=== PATIENT | male | born 1980 | race Caucasian/White ===

== ENCOUNTER 2023-08-11 10:10 | Observation (INO) ==
--- NOTE | 2023-08-11 10:45 | DR.ABDMALE ---
HPI Time seen Time Seen by Provider: 08/11/23 10:45 Complaint Chief Complaint:: PATIENT C/O EPIGASTRIC AND RUQ PAIN. PATIENT STATES HE HAS HAD THIS PAIN IN THE RECENT PAST AND WAS ADMITTED TO [facility]. PATIENT WAS DISCHARGED ON FRIDAY OF THIS WEEK. PATIENT STATES HE HAS BEEN FINE BUT WOKE UP WITH SEVERE PAIN IN ABD. PATIENT STATES HE HAS BEEN HAVING NAUSEA AND VOMITTING. PATIENT HAS A NOTED IV TO RIGHT HAND AND HAS BEEN ADMINISTERED NS, ZOFRAN, AND PHENERGAN AT [facility]. COVID-19 Coronavirus risk:travel/contact w/high risk person: No Has patient experienced Coronavirus symptoms: No Mode of arrival Mode of Arrival: Wheelchair Timing Onset of Chief Complaint: 08/11/23 PMH PMH Past Medical History: Yes Past Medical History: Hypertension Past Surgical History: Yes Surgical History: Ortho Surgery Family History History of Family Medical Conditions: No Social History Does any household member use tobacco: No Alcohol Use: None Do you use any recreational Drugs:: No Lives With: Family Lives Where: Home Travel Risk Coronavirus risk:travel/contact w/high risk person: No Has patient experienced Coronavirus symptoms: No Infectious screening In the last 2 months have you had wt loss of >10#?: NO Have you had fever, night sweats or hemotysis?: No Have you traveled outside the country in the last 6 months?: No Isolation: Standard PE Vital Signs Vital Signs: Temp Pulse Resp BP Pulse Ox O2 Del Method 08/11/23 11:36 18 08/11/23 11:08 18 08/11/23 10:18 98.1 F 82 20 168/107 99 Room Air ROR Labs Reviewed 08/11/23 10:57 08/11/23 10:57 Laboratory: WBC 12.2 X10^3/uL (3.6-10.0) H 08/11/23 10:57 RBC 5.53 X10^6/uL (4.7-6.0) 08/11/23 10:57 Hgb 16.6 g/dL (13.5-18.0) 08/11/23 10:57 Hct 49.6 % (42.0-54.0) 08/11/23 10:57 MCV 89.7 fL (80.0-100.0) 08/11/23 10:57 MCH 30.0 pg (27.0-34.0) 08/11/23 10:57 MCHC 33.4 g/dL (33.0-35.0) 08/11/23 10:57 RDW 14.3 % (11.6-16.5) 08/11/23 10:57 Plt Count 250 X10^3/uL (150.0-450.0) 08/11/23 10:57 Plt Count Comment Adequate (ADEQUATE) 08/11/23 10:57 MPV 7.8 fL (7.4-11.0) 08/11/23 10:57 Neut % (Auto) 97.1 % (42.0-75.0) H 08/11/23 10:57 Lymph % (Auto) 1.7 % (21.0-51.0) L 08/11/23 10:57 [place] % (Auto) 1.2 % (0.0-13.0) 08/11/23 10:57 Eos % (Auto) 0.0 % (0.9-2.9) L 08/11/23 10:57 Baso % (Auto) 0 % (0.2-1.0) L 08/11/23 10:57 Neut # (Auto) 11.8 x10^3/uL (2.2-4.8) H 08/11/23 10:57 Lymph # (Auto) 0.2 X10^3/uL (1.3-2.9) L 08/11/23 10:57 [place] # (Auto) 0.2 x10^3/uL (0.3-0.8) L 08/11/23 10:57 Eos # (Auto) 0.0 x10^3/uL (0.0-0.2) 08/11/23 10:57 Baso # (Auto) 0.0 X10^3/uL (0.0-0.1) 08/11/23 10:57 Absolute Nucleated RBC 0.1 /100WBC 08/11/23 10:57 Total Counted 100 08/11/23 10:57 Neutrophils % (Manual) 956 % (39-76) H 08/11/23 10:57 Lymphocytes % (Manual) 4 % (13-43) L 08/11/23 10:57 Monocytes % (Manual) 1 % (4-9) L 08/11/23 10:57 Plt Morphology Comment Normal (NORMAL) 08/11/23 10:57 RBC Morphology Normal (NORMAL) 08/11/23 10:57 Sodium 141 mmol/L (136-145) 08/11/23 10:57 Corrected Sodium 142 mmol/L (136-145) 08/11/23 10:57 Potassium 4.4 mmol/L (3.5-5.1) 08/11/23 10:57 Chloride 104 mmol/L (98-107) 08/11/23 10:57 Carbon Dioxide 26.6 mmol/L (21-32) 08/11/23 10:57 BUN 14 mg/dL (7-18) 08/11/23 10:57 Creatinine 1.01 mg/dL (0.70-1.30) 08/11/23 10:57 Est GFR (MDRD) Af Amer > 60 (>60) 08/11/23 10:57 Est GFR (MDRD) Non-Af > 60 (>60) 08/11/23 10:57 Glucose 121 mg/dL (65-99) H 08/11/23 10:57 Calcium 8.7 mg/dL (8.5-10.1) 08/11/23 10:57 Corrected Calcium TNP 08/11/23 10:57 Total Bilirubin 0.60 mg/dL (0.2-1.0) 08/11/23 10:57 AST 17 Units/L (15-37) 08/11/23 10:57 ALT 54 Units/L (12-78) 08/11/23 10:57 Alkaline Phosphatase 74 Units/L (46-116) 08/11/23 10:57 Total Protein 7.5 g/dL (6.4-8.2) 08/11/23 10:57 Albumin 4.1 g/dL (3.4-5.0) 08/11/23 10:57 Globulin 3.4 g/dL (2.5-4.5) 08/11/23 10:57 Albumin/Globulin Ratio 1.2 Ratio (1.1-2.1) 08/11/23 10:57 Amylase 77 Units/L (25-115) 08/11/23 10:57 Lipase 26 Units/L (16-77) 08/11/23 10:57 Opioid Opioid Risk Tool Age (Stanford box if 16-45): Yes History of Preadolescent Sexual Abuse: No Total: 1 Total Score Risk Category: Low Risk Copyright: Fercho DOOLEY predicting aberrant behaviors Discharge Plan Diagnosis Discharge Problem: Biliary dyskinesia, Abdominal pain Discharge Plan Patient Disposition: 09 ADMITTED INPATIENT Condition: Stable Orders to Discharge Patient Discharge Orders: Transfer (Routine); Ordered 08/11/23 Ordered By: JCAK ROY
[2023-08-11] MEDS ORDERED: ZOFRAN INJ 4 MG VIAL IVP ONE (10:47)
[2023-08-11] MEDS ORDERED: TORADOL 30 MG VIAL IVP ONE (10:49)
[2023-08-11] MEDS ORDERED: PEPCID 20 MG VIAL 20 MG in NS 50 ML IV 50 ML IV ONE (10:54)
[2023-08-11] MEDS ORDERED: TORADOL 30 MG VIAL ONE (11:00)
[2023-08-11] MEDS ORDERED: PEPCID 20 MG VIAL ONE (11:00)
[2023-08-11] MEDS ORDERED: NS 50 ML IV 50 ML IV ONE (11:00)
[2023-08-11] MEDS ORDERED: ZOFRAN INJ 4 MG VIAL ONE (11:00)
[2023-08-11 11:07] LABS: BASOPHILS % (AUTO) 0 % (0.2-1.0); HEMATOCRIT 49.6 % (42.0-54.0); HEMOGLOBIN 16.6 g/dL (13.5-18.0); LYMPHOCYTES # (AUTO) 0.2 X10^3/uL (1.3-2.9); LYMPHOCYTES % (AUTO) 1.7 % (21.0-51.0); MEAN CORPUSCULAR HGB CONC 33.4 g/dL (33.0-35.0); MEAN CORPUSCULAR VOLUME 89.7 fL (80.0-100.0); MEAN PLATELET VOLUME 7.8 fL (7.4-11.0); MONOCYTES # (AUTO) 0.2 x10^3/uL (0.3-0.8); MONOCYTES % (AUTO) 1.2 % (0.0-13.0); NEUTROPHILS # (AUTO) 11.8 x10^3/uL (2.2-4.8); NEUTROPHILS % (AUTO) 97.1 % (42.0-75.0); PLATELET COUNT 250 X10^3/uL (150.0-450.0); RED BLOOD COUNT 5.53 X10^6/uL (4.7-6.0); RED CELL DISTRIBUTION WIDTH 14.3 % (11.6-16.5); WHITE BLOOD COUNT 12.2 X10^3/uL (3.6-10.0)
[2023-08-11 11:26] LABS: ALANINE AMINOTRANSFERASE 54 Units/L (12-78); ALBUMIN 4.1 g/dL (3.4-5.0); ALKALINE PHOSPHATASE 74 Units/L (46-116); AMYLASE 77 Units/L (25-115); ASPARTATE AMINO TRANSFERASE 17 Units/L (15-37); BLOOD UREA NITROGEN 14 mg/dL (7-18); CALCIUM 8.7 mg/dL (8.5-10.1); CARBON DIOXIDE 26.6 mmol/L (21-32); CHLORIDE 104 mmol/L (98-107); COR NA(FOR HYPERGLY) 142 mmol/L (136-145); CREATININE 1.01 mg/dL (0.70-1.30); GLUCOSE 121 mg/dL (65-99); LIPASE 26 Units/L (16-77); POTASSIUM 4.4 mmol/L (3.5-5.1); SODIUM 141 mmol/L (136-145); TOTAL PROTEIN 7.5 g/dL (6.4-8.2); eGFR NON BLACK RACES > 60 (>60)
[2023-08-11] MEDS ORDERED: MORPHINE SULFATE INJ 4 MG IVP ONE (11:27)
[2023-08-11] MEDS ORDERED: MORPHINE SULFATE INJ 4 MG ONE (11:32)
[2023-08-11 12:18] LABS: PLATELET MORPHOLOGY COMMENT NORMAL (NORMAL)
[2023-08-11 14:37] VITALS: BMI 25.9
[2023-08-11] MEDS ORDERED: CATAPRES TAB 0.1 MG PO ONE (14:44)
[2023-08-11] MEDS ORDERED: PEPCID TAB 20 MG PO PRN (15:25)
[2023-08-11] MEDS ORDERED: DILAUDID INJ IVP PRN (15:25)
[2023-08-11] MEDS: LR 1,000 ML IV 1,000 ML IV SCH (15:46)
[2023-08-11 15:58] LABS: BILIRUBIN,URINE NEGATIVE (NEGATIVE); BLOOD/HEMOGLOBIN,URINE NEGATIVE (NEGATIVE); GLUCOSE, URINE NEGATIVE (NEGATIVE); KETONES,URINE 4+ (NEGATIVE); LEUKOCYTE ESTERASE ,URINE NEGATIVE (NEGATIVE); NITRITES,URINE NEGATIVE (NEGATIVE); PROTEIN,URINE 2+ (NEGATIVE); UROBILINOGEN,URINE 2+ (NORMAL)
[2023-08-11 16:07] LABS: APPEARANCE,URINE SLIGHTLY HAZY (CLEAR); BACTERIA,URINE NEGATIVE /HPF (NEGATIVE); COLOR,URINE YELLOW (YELLOW); RBC,URINE NONE SEEN /HPF (0-3); SQUAMOUS EPITHELIAL CELL,UR RARE /HPF (NEGATIVE)
[2023-08-11] MEDS: DILAUDID INJ IVP PRN ×2 (16:07→23:08)
[2023-08-11] MEDS: LIPITOR TAB 20 MG PO SCH (20:27)
--- NOTE | 2023-08-11 20:27 | DR.H&P ---
H&P History & Physical for Day of: H&P Date: 08/11/23 Chief Complaint Chief Complaint: RUQ pain Allergies Allergies Allergy/AdvReac Type Severity Reaction Status Date / Time No Known Allergies Allergy Verified 08/11/23 10:20 History of Present Illness History of Present Illness: 43 yo male, prisoner in [facility] with recent multiple episodes of RUQ Pain. Seen at [facility] and had CT and gallbladder ultrasound with no findings of gallstones or gallbladder wall thickening. Past Medical History Past Medical History: Dyslipidemia and Hypertension Past Surgical History Surgical History: Ortho Surgery Family History Family Medical History: Diabetes Mellitus and Hypertension Social History Does patient currently use any type of tobacco product: No Have you used tobacco products in the last 12 months: No Does any household member use tobacco: No Alcohol Use: None Drug Use: None Medications Home Medications: Home Medications Medication Instructions Recorded Confirmed Type atorvastatin 20 mg tablet 20 mg PO HS 08/11/23 08/11/23 History ibuprofen 400 mg tablet 400 mg PO Q8H PRN 08/11/23 08/11/23 History lisinopril 5 mg tablet 5 mg PO DAILY 08/11/23 08/11/23 History pantoprazole 40 mg tablet,delayed 40 mg PO DAILY 08/11/23 08/11/23 History release (Protonix) Labs 08/11/23 10:57 08/11/23 10:57 Labs: Laboratory WBC 12.2 X10^3/uL (3.6-10.0) H 08/11/23 10:57 RBC 5.53 X10^6/uL (4.7-6.0) 08/11/23 10:57 Hgb 16.6 g/dL (13.5-18.0) 08/11/23 10:57 Hct 49.6 % (42.0-54.0) 08/11/23 10:57 MCV 89.7 fL (80.0-100.0) 08/11/23 10:57 MCH 30.0 pg (27.0-34.0) 08/11/23 10:57 MCHC 33.4 g/dL (33.0-35.0) 08/11/23 10:57 RDW 14.3 % (11.6-16.5) 08/11/23 10:57 Plt Count 250 X10^3/uL (150.0-450.0) 08/11/23 10:57 Plt Count Comment Adequate (ADEQUATE) 08/11/23 10:57 MPV 7.8 fL (7.4-11.0) 08/11/23 10:57 Neut % (Auto) 97.1 % (42.0-75.0) H 08/11/23 10:57 Lymph % (Auto) 1.7 % (21.0-51.0) L 08/11/23 10:57 [place] % (Auto) 1.2 % (0.0-13.0) 08/11/23 10:57 Eos % (Auto) 0.0 % (0.9-2.9) L 08/11/23 10:57 Baso % (Auto) 0 % (0.2-1.0) L 08/11/23 10:57 Neut # (Auto) 11.8 x10^3/uL (2.2-4.8) H 08/11/23 10:57 Lymph # (Auto) 0.2 X10^3/uL (1.3-2.9) L 08/11/23 10:57 [place] # (Auto) 0.2 x10^3/uL (0.3-0.8) L 08/11/23 10:57 Eos # (Auto) 0.0 x10^3/uL (0.0-0.2) 08/11/23 10:57 Baso # (Auto) 0.0 X10^3/uL (0.0-0.1) 08/11/23 10:57 Absolute Nucleated RBC 0.1 /100WBC 08/11/23 10:57 Total Counted 100 08/11/23 10:57 Neutrophils % (Manual) 956 % (39-76) H 08/11/23 10:57 Lymphocytes % (Manual) 4 % (13-43) L 08/11/23 10:57 Monocytes % (Manual) 1 % (4-9) L 08/11/23 10:57 Plt Morphology Comment Normal (NORMAL) 08/11/23 10:57 RBC Morphology Normal (NORMAL) 08/11/23 10:57 Sodium 141 mmol/L (136-145) 08/11/23 10:57 Corrected Sodium 142 mmol/L (136-145) 08/11/23 10:57 Potassium 4.4 mmol/L (3.5-5.1) 08/11/23 10:57 Chloride 104 mmol/L (98-107) 08/11/23 10:57 Carbon Dioxide 26.6 mmol/L (21-32) 08/11/23 10:57 BUN 14 mg/dL (7-18) 08/11/23 10:57 Creatinine 1.01 mg/dL (0.70-1.30) 08/11/23 10:57 Est GFR (MDRD) Af Amer > 60 (>60) 08/11/23 10:57 Est GFR (MDRD) Non-Af > 60 (>60) 08/11/23 10:57 Glucose 121 mg/dL (65-99) H 08/11/23 10:57 Calcium 8.7 mg/dL (8.5-10.1) 08/11/23 10:57 Corrected Calcium TNP 08/11/23 10:57 Total Bilirubin 0.60 mg/dL (0.2-1.0) 08/11/23 10:57 AST 17 Units/L (15-37) 08/11/23 10:57 ALT 54 Units/L (12-78) 08/11/23 10:57 Alkaline Phosphatase 74 Units/L (46-116) 08/11/23 10:57 Total Protein 7.5 g/dL (6.4-8.2) 08/11/23 10:57 Albumin 4.1 g/dL (3.4-5.0) 08/11/23 10:57 Globulin 3.4 g/dL (2.5-4.5) 08/11/23 10:57 Albumin/Globulin Ratio 1.2 Ratio (1.1-2.1) 08/11/23 10:57 Amylase 77 Units/L (25-115) 08/11/23 10:57 Lipase 26 Units/L (16-77) 08/11/23 10:57 Specimen Type Random urine 08/11/23 15:40 Urine Color Yellow (YELLOW) 08/11/23 15:40 Urine Appearance Slightly hazy (CLEAR) 08/11/23 15:40 Urine pH 6.0 (5.0 - 8.0) 08/11/23 15:40 Ur Specific [place] 1.025 (1.000-1.030) 08/11/23 15:40 Urine Protein 2+ (NEGATIVE) 08/11/23 15:40 Urine Glucose (UA) Negative (NEGATIVE) 08/11/23 15:40 Urine Ketones 4+ (NEGATIVE) 08/11/23 15:40 Urine Blood Negative (NEGATIVE) 08/11/23 15:40 Urine Nitrite Negative (NEGATIVE) 08/11/23 15:40 Urine Bilirubin Negative (NEGATIVE) 08/11/23 15:40 Urine Urobilinogen 2+ (NORMAL) 08/11/23 15:40 Ur Leukocyte Esterase Negative (NEGATIVE) 08/11/23 15:40 Urine RBC None seen /HPF (0-3) 08/11/23 15:40 Urine WBC 0-2 /HPF (0-5) 08/11/23 15:40 Ur Squamous Epith Cells Rare /HPF (NEGATIVE) 08/11/23 15:40 Urine Bacteria Negative /HPF (NEGATIVE) 08/11/23 15:40 Ur Culture Indicated? No/not indicated 08/11/23 15:40 Review of Systems Constitutional: See HPI Eyes: No Symptoms Reported ENT: No Symptoms Reported Respiratory: No Symptoms Reported Cardiovascular: No Symptoms Reported Gastrointestinal: See HPI Genitourinary: No Symptoms Reported Musculoskeletal: No Symptoms Reported Skin: No Symptoms Reported Neurological: No Symptoms Reported Physical Exam Vital Signs: Vital Signs Temperature 98.2 F Temperature 98.6 F Pulse Rate [Left Brachial] 101 Pulse Rate [Left Brachial] 74 Respiratory Rate 20 Respiratory Rate 20 Respiratory Rate 20 Respiratory Rate 20 Respiratory Rate 20 Blood Pressure [Left Arm] 129/64 Blood Pressure [Left Arm] 165/80 Blood Pressure [Left Arm] 181/100 O2 Sat by Pulse Oximetry 97 O2 Sat by Pulse Oximetry 99 Oriented: Normal, Time, Person and Place Eyes: Normal Ear: Normal Nose: Normal Throat: Normal Respiratory: Clear Throughout Cardiovascular: Normal : Normal Auscultation: Bowel Sounds: Normal Palpation: Normal Tenderness: RUQ Skin: Normal Musculoskeletal: Normal Psychiatric: Normal Mood Description: Anxious Affect: Normal Speech Pattern: Clear Assessment/Plan (1) RUQ abdominal pain: Status: Acute Plan: Hydrate , pain control and HIDA scan in AM (2) Essential (primary) hypertension: Status: Acute Plan: usual home meds (3) Dyslipidemia: Status: Acute Plan: usual home meds
[2023-08-12] MEDS: LR 1,000 ML IV 1,000 ML IV SCH ×2 (05:13→19:08)
[2023-08-12 05:35] LABS: BASOPHILS # (AUTO) 0.1 X10^3/uL (0.0-0.1); BASOPHILS % (AUTO) 0.9 % (0.2-1.0); EOSINOPHILS % (AUTO) 0.2 % (0.9-2.9); HEMATOCRIT 44.5 % (42.0-54.0); HEMOGLOBIN 14.9 g/dL (13.5-18.0); LYMPHOCYTES # (AUTO) 1.2 X10^3/uL (1.3-2.9); LYMPHOCYTES % (AUTO) 11.8 % (21.0-51.0); MEAN CORPUSCULAR HEMOGLOBIN 30.1 pg (27.0-34.0); MEAN CORPUSCULAR HGB CONC 33.4 g/dL (33.0-35.0); MEAN CORPUSCULAR VOLUME 90.2 fL (80.0-100.0); MEAN PLATELET VOLUME 8.5 fL (7.4-11.0); MONOCYTES # (AUTO) 1.1 x10^3/uL (0.3-0.8); MONOCYTES % (AUTO) 10.8 % (0.0-13.0); NEUTROPHILS # (AUTO) 7.7 x10^3/uL (2.2-4.8); NEUTROPHILS % (AUTO) 76.3 % (42.0-75.0); PLATELET COUNT 226 X10^3/uL (150.0-450.0); RED BLOOD COUNT 4.93 X10^6/uL (4.7-6.0); RED CELL DISTRIBUTION WIDTH 14.3 % (11.6-16.5); WHITE BLOOD COUNT 10.1 X10^3/uL (3.6-10.0)
[2023-08-12 05:41] LABS: ALANINE AMINOTRANSFERASE 37 Units/L (12-78); ALBUMIN 3.1 g/dL (3.4-5.0); ALKALINE PHOSPHATASE 57 Units/L (46-116); ASPARTATE AMINO TRANSFERASE 11 Units/L (15-37); BLOOD UREA NITROGEN 14 mg/dL (7-18); CARBON DIOXIDE 26.1 mmol/L (21-32); CHLORIDE 106 mmol/L (98-107); COR CA(FOR HYPOALB) 8.7 mg/dL (8.5-10.1); CREATININE 0.87 mg/dL (0.70-1.30); GLUCOSE 82 mg/dL (65-99); MAGNESIUM 1.9 mg/dL (2.0-2.9); POTASSIUM 3.9 mmol/L (3.5-5.1); SODIUM 141 mmol/L (136-145); TOTAL PROTEIN 5.9 g/dL (6.4-8.2); eGFR NON BLACK RACES > 60 (>60)
[2023-08-12] MEDS ORDERED: CONSULT PHARMACY - POTASSIUM & MAGNESIUM XX SCH (08:00)
[2023-08-12] MEDS: MAG-OX TAB PO SCH ×2 (09:41→10:48)
[2023-08-12] MEDS: PROTONIX TAB 40 MG PO SCH (09:41)
[2023-08-12] MEDS: ZESTRIL TAB 5 MG PO SCH (09:42)
--- NOTE | 2023-08-12 10:30 | NM ---
EXAM:HIDA/HEPATOBILIARY SCAN W/EFHISTORY:Pt c/o right upper quadrant abdominal pain x 2 weeks with pain level fluctuating between 5-10 on a pain scale Also has had nausea and vomiting; 6.2mCi 99mTc Mebrofenin injected IV right handGBEF calculated utilizing 8 oz Ensure.COMPARISON:NoneTECHNIQUE:6.2 mCi Tc-99m mebrofenin were injected intravenously. Planar images were obtained for 90 minutes.FINDINGS:There was prompt uptake and excretion by the liver. Activity is seen in the gallbladder by 8 minutes with no evidence of cystic duct obstruction. Activity is seen in the small bowel at 32 minutes with no evidence of common bile duct obstruction.At 60 minutes, the technologist gave the patient a fatty meal. Gallbladder ejection fraction was calculated at 33%. Normal gallbladder ejection fraction is greater than 35%. Low gallbladder ejection fraction can be seen gallbladder dysfunction or biliary dyskinesia.IMPRESSION:1. Findings suggesting gallbladder dysfunctionTHIS IS AN ELECTRONICALLY VERIFIED FINAL [id number]/12/2023 10:26 AM - Electronically signed by Soy Young MD
[2023-08-12] MEDS: ROBITUSSIN DM PO PRN (10:48)
[2023-08-12] MEDS: DILAUDID INJ IVP PRN ×3 (12:46→22:09)
[2023-08-12] MEDS: LIPITOR TAB 20 MG PO SCH (22:08)
--- NOTE | 2023-08-12 22:14 | NOTE.SOAP ---
Soap Note Note for Day of Date of Exam: 08/12/23 Subjective Data Subjective Data: Patient has done well. Had hepatobiliary scan today. Objective Data Temperature: 98.2 F Pulse Rate: 60 Respiratory Rate: 20 Blood Pressure: 120/59 O2 Sat by Pulse Oximetry: 97 Objective Data: Mild RUQ tenderness.HIDA with EF=33% consistent with biliary dyskinesia. Assessment Assessment: biliary dyskinesia Plan Plan: plan laparoscopic cholecystectomy tomorrow. Risk and benefits discussed with the patient and he agrees to proceed.
[2023-08-13] MEDS: DILAUDID INJ IVP PRN ×9 (02:15→22:39)
[2023-08-13 05:43] LABS: BASOPHILS # (AUTO) 0.1 X10^3/uL (0.0-0.1); BASOPHILS % (AUTO) 1.1 % (0.2-1.0); EOSINOPHILS % (AUTO) 0.6 % (0.9-2.9); HEMATOCRIT 46.6 % (42.0-54.0); HEMOGLOBIN 15.6 g/dL (13.5-18.0); LYMPHOCYTES # (AUTO) 1.1 X10^3/uL (1.3-2.9); LYMPHOCYTES % (AUTO) 18.5 % (21.0-51.0); MEAN CORPUSCULAR HEMOGLOBIN 30.1 pg (27.0-34.0); MEAN CORPUSCULAR HGB CONC 33.4 g/dL (33.0-35.0); MEAN CORPUSCULAR VOLUME 90.1 fL (80.0-100.0); MEAN PLATELET VOLUME 8.2 fL (7.4-11.0); MONOCYTES # (AUTO) 0.8 x10^3/uL (0.3-0.8); NEUTROPHILS # (AUTO) 4.1 x10^3/uL (2.2-4.8); NEUTROPHILS % (AUTO) 66.8 % (42.0-75.0); PLATELET COUNT 236 X10^3/uL (150.0-450.0); RED BLOOD COUNT 5.17 X10^6/uL (4.7-6.0); RED CELL DISTRIBUTION WIDTH 14.1 % (11.6-16.5); WHITE BLOOD COUNT 6.2 X10^3/uL (3.6-10.0)
[2023-08-13 05:55] LABS: ALANINE AMINOTRANSFERASE 35 Units/L (12-78); ALBUMIN 3.3 g/dL (3.4-5.0); ALKALINE PHOSPHATASE 63 Units/L (46-116); ASPARTATE AMINO TRANSFERASE 13 Units/L (15-37); BLOOD UREA NITROGEN 10 mg/dL (7-18); CALCIUM 8.3 mg/dL (8.5-10.1); CARBON DIOXIDE 31.5 mmol/L (21-32); CHLORIDE 105 mmol/L (98-107); COR CA(FOR HYPOALB) 8.9 mg/dL (8.5-10.1); CREATININE 0.97 mg/dL (0.70-1.30); GLUCOSE 83 mg/dL (65-99); POTASSIUM 4.1 mmol/L (3.5-5.1); SODIUM 141 mmol/L (136-145); TOTAL PROTEIN 6.3 g/dL (6.4-8.2); eGFR NON BLACK RACES > 60 (>60)
--- NOTE | 2023-08-13 07:11 | RAD ---
EXAM:PA chestHISTORY:Cough short of breathCOMPARISON:NoneFINDINGS:Normal-wong earing heart, lungs, mediastinum and pleural spaces. There is no definite pneumonia or CHF.IMPRESSION:No acute findings.THIS IS AN ELECTRONICALLY VERIFIED FINAL [id number]/13/2023 7:07 AM - Electronically signed by Jim Alvares MD
[2023-08-13] MEDS: LR 1,000 ML IV 1,000 ML IV SCH ×3 (07:14→20:27)
[2023-08-13] MEDS: ZESTRIL TAB 5 MG PO SCH (10:21)
[2023-08-13] MEDS: PROTONIX TAB 40 MG PO SCH (10:21)
[2023-08-13] MEDS ORDERED: BACTROBAN TOPICAL OINT ONE (13:09)
[2023-08-13] MEDS ORDERED: LR 1,000 ML IV 1,000 ML IV ONE (13:24)
[2023-08-13] MEDS ORDERED: ANCEF VIAL 1 GRAM ONE (13:24)
[2023-08-13] MEDS ORDERED: NS 100 ML IV 100 ML ONE (13:24)
[2023-08-13] MEDS ORDERED: VERSED ONE (13:31)
[2023-08-13] MEDS ORDERED: DIPRIVAN VIAL 20 ML ONE (13:31)
[2023-08-13] MEDS ORDERED: ZEMURON 100 MG VIAL ONE (13:33)
[2023-08-13] MEDS ORDERED: DILAUDID INJ ONE ×3 (13:33→14:59)
[2023-08-13] MEDS ORDERED: MARCAINE 0.5% ONE (13:40)
[2023-08-13] MEDS ORDERED: ZOFRAN INJ 4 MG VIAL IVP PRN (13:48)
[2023-08-13] MEDS ORDERED: REGLAN INJ 10 MG VIAL IVP PRN (13:48)
[2023-08-13] MEDS ORDERED: BARHEMSYS INJ IVP PRN (13:48)
[2023-08-13] MEDS ORDERED: BENADRYL INJ 50 MG VIAL IVP PRN (13:48)
[2023-08-13] MEDS ORDERED: ULTANE GAS IN ONE (13:51)
[2023-08-13] MEDS ORDERED: PEPCID 20 MG VIAL ONE (14:09)
[2023-08-13] MEDS ORDERED: ZOFRAN INJ 4 MG VIAL ONE ×2 (14:09→15:20)
[2023-08-13] MEDS ORDERED: MAGNESIUM SULFATE 50% INJ VIAL ONE (14:09)
[2023-08-13] MEDS ORDERED: DECADRON INJ ONE (14:09)
[2023-08-13] MEDS ORDERED: BRIDION ONE (14:31)
--- NOTE | 2023-08-13 14:55 | OR.IMMED ---
IMMEDIATE POST-OP NOTE Immediate Post-Op Note Date of surgery/procedure: 08/13/23 Pre-Op Diagnosis: biliary dyskinesia Post-Op Diagnosis: same Procedure: laparoscopic cholecystectomy Description of Procedure: see dictation Surgeon/Priming Powder Premix Blender: oMshe Findings: as above Estimated Blood Loss: < 50 cc Drains: NONE Complications: none Progress Notes: return to floor, begin diet.
[2023-08-13] MEDS ORDERED: APRESOLINE INJ 20 MG VIAL IVP ONE ×2 (15:09→15:22)
[2023-08-13] MEDS: LIPITOR TAB 20 MG PO SCH (20:28)
[2023-08-14] MEDS: ZOFRAN INJ 4 MG VIAL IVP PRN ×2 (01:36→14:33)
[2023-08-14] MEDS: DILAUDID INJ IVP PRN ×6 (02:40→22:34)
[2023-08-14] MEDS: LR 1,000 ML IV 1,000 ML IV SCH ×4 (06:40→22:48)
[2023-08-14] MEDS: PROTONIX TAB 40 MG PO SCH (09:51)
[2023-08-14] MEDS: ROBITUSSIN DM PO PRN ×3 (09:51→22:35)
[2023-08-14] MEDS: ZESTRIL TAB 5 MG PO SCH (09:52)
--- NOTE | 2023-08-14 15:34 | NOTE.SOAP ---
Soap Note Note for Day of Date of Exam: 08/14/23 Subjective Data Subjective Data: Postoperative day one after laparoscopic cholecystectomy for biliary dyskinesia. Complaining of abdominal pain. Incisions look good. Complaining of poor appetite . Objective Data Temperature: 99.2 F Pulse Rate: 82 Respiratory Rate: 20 Blood Pressure: 137/77 O2 Sat by Pulse Oximetry: 96 Objective Data: Abdomen soft and benign. Assessment Assessment: POD # 1 s/p lap tim Plan Plan: check LEFs in AM. Hopefully d/c in AM
[2023-08-14] MEDS: LIPITOR TAB 20 MG PO SCH (20:20)
[2023-08-15] MEDS: DILAUDID INJ IVP PRN ×3 (02:55→13:07)
[2023-08-15] MEDS: ROBITUSSIN DM PO PRN ×2 (03:20→13:06)
[2023-08-15 06:38] LABS: ALANINE AMINOTRANSFERASE 64 Units/L (12-78); ALBUMIN 2.9 g/dL (3.4-5.0); ALKALINE PHOSPHATASE 66 Units/L (46-116); ASPARTATE AMINO TRANSFERASE 24 Units/L (15-37); BLOOD UREA NITROGEN 10 mg/dL (7-18); CALCIUM 8.6 mg/dL (8.5-10.1); CARBON DIOXIDE 29.8 mmol/L (21-32); CHLORIDE 104 mmol/L (98-107); COR CA(FOR HYPOALB) 9.5 mg/dL (8.5-10.1); CREATININE 0.86 mg/dL (0.70-1.30); GLUCOSE 91 mg/dL (65-99); POTASSIUM 4.1 mmol/L (3.5-5.1); SODIUM 139 mmol/L (136-145); TOTAL PROTEIN 6.1 g/dL (6.4-8.2); eGFR NON BLACK RACES > 60 (>60)
[2023-08-15] MEDS: ZESTRIL TAB 5 MG PO SCH (09:32)
[2023-08-15] MEDS: PROTONIX TAB 40 MG PO SCH (09:33)
--- NOTE | 2023-08-15 11:28 | DR.OPNOTE ---
OP NOTE Pre-Op Diagnosis: Biliary dyskinesia Post-Op Diagnosis: same Procedure Date Date Of Procedure: 08/13/23 Procedure: PROCEDURE: LAPAROSCOPIC CHOLECYSTECTOMY NARRARTIVE : The patient was taken to the operative suite and placed in the supine position. General endotracheal anesthesia was induced. The entire abdomen prepped and draped in sterile fashion. Patient was placed in reverse Trendelenburg position and rolled to the left. Time out for the procedure obtained. Curvilinear 3cm incision made below the umbilicus in the midline and dissection carried down to the midline fascia. Medline fascia had holding sutures of 0 vicryl placed on either side of the midline. The fascia opened vertically with a 15 knife blade. The peritoneum was opened with Metzenbaum scissors and the abdominal cavity entered. Mojgan cannula placed through this opening and held in position with the holding sutures. The abdomen insufflated to 15 mm of mercury with carbon dioxide. Under direct vision two 5 mm trocars placed along the right costal margin. A 5 mm trocar placed in the epigastrium. The gallbladder was identified and was consistent with biliary dyskinesia . The gallbladder was grasped at the fundus and infundibulum and dissection carried out in Calot's triangle identifying the cystic duct and cystic artery , i.e. the critical view of safety. Both were clipped proximally and distally and divided. The peritoneum of the gallbladder incised with electrocautery to remove the gallbladder from the liver bed. The gallbladder removed through the infra umbilical port. The Mojgan cannula was replaced. Abdomen irrigated and suctioned free. Hemostasis obtained with electrocautery where necessary. Surgicel placed in the liver bed where the gallbladder has been removed. All trocars removed. The fascia of the initial incision closed with interrupted 0 Vicryl suture . All laparoscopic incisions then closed with 3-0 Vicryl sutures in the subcutaneous tissue in interrupted fashion. The skin closed with steri strips Each incision was injected with 0.5% Marcaine. The patient was extubated and taken to PACU in good condition . Type of Anesthesia: General Anesthetic w/ETT Findings: as above Type of Fluids Used:: Lactated Ringers EBL: minimal Complications:: none Needle/Sponge Count:: correct Disposition/Condition: Pt. tolerated procedure without difficulty. Extubated in the OR and taken to PACU in stable condition.
[2023-08-15 12:12] VITALS: BP 125/74; PULSE 72; TEMP 98.6; O2SAT 96
--- NOTE | 2023-08-15 12:58 | W.DIS.FURT ---
Summary of Discharge Discharge Summary of Date Date of Exam: 08/15/23 Admission Date Date of Admission: 08/11/23 Admission Diagnosis Patient Problems (Updated 08/11/23 @ 20:25 by Dexter Mesa) Biliary dyskinesia (Acute) K82.8 Abdominal pain (Acute) R10.9 Hospital Course: This 43 year old male presented with multiple episodes of right upper quadrant pain with meals. CT scan showed no obvious gallstones. Patient was admitted and underwent a biliary HIDA scan showing a low ejection fraction of 33%. The patient was taken to the operating Suite on August 13 where he underwent uncomplicated laparoscopic cholecystectomy. He had complained of some abdominal pain in the right upper quadrant that has resolved. Post-procedure liver function tests are within normal limits. He will be discharged back to the long-term system. I will see him in follow up in two weeks. Vital Signs: Vital Signs (72 hours) 08/12/23 22:14 08/14/23 15:31 08/12/23 13:16 Temperature 98.2 F 99.2 F Pulse Rate 60 82 Pulse Rate [Left Brachial] Respiratory Rate 20 20 18 Blood Pressure 120/59 137/77 Blood Pressure [Left Arm] O2 Sat by Pulse Oximetry 97 96 Oxygen Delivery Method 08/12/23 16:00 08/12/23 16:58 08/12/23 17:28 Temperature 98.1 F Pulse Rate Pulse Rate [Left Brachial] 56 L Respiratory Rate 18 18 18 Blood Pressure Blood Pressure [Left Arm] 130/73 O2 Sat by Pulse Oximetry 98 Oxygen Delivery Method Room Air 08/12/23 22:09 08/12/23 22:39 08/12/23 19:00 Temperature Pulse Rate Pulse Rate [Left Brachial] Respiratory Rate 18 18 Blood Pressure Blood Pressure [Left Arm] O2 Sat by Pulse Oximetry Oxygen Delivery Method Room Air 08/12/23 20:00 08/13/23 00:00 08/13/23 02:15 Temperature 97.7 F 98.2 F Pulse Rate Pulse Rate [Left Brachial] 60 65 Respiratory Rate 20 20 20 Blood Pressure Blood Pressure [Left Arm] 139/70 129/63 O2 Sat by Pulse Oximetry 98 98 Oxygen Delivery Method Room Air Room Air 08/13/23 02:45 08/13/23 03:54 08/13/23 06:09 Temperature 97.7 F Pulse Rate Pulse Rate [Left Brachial] 82 Respiratory Rate 20 20 20 Blood Pressure Blood Pressure [Left Arm] 140/80 O2 Sat by Pulse Oximetry 99 Oxygen Delivery Method Room Air 08/13/23 06:39 08/13/23 10:29 08/13/23 10:59 Temperature Pulse Rate Pulse Rate [Left Brachial] Respiratory Rate 20 20 20 Blood Pressure Blood Pressure [Left Arm] O2 Sat by Pulse Oximetry Oxygen Delivery Method 08/13/23 13:33 08/13/23 13:51 08/13/23 14:46 Temperature 98.1 F 97 F L Pulse Rate 66 81 Pulse Rate [Left Brachial] Respiratory Rate 18 18 17 Blood Pressure 137/81 176/100 Blood Pressure [Left Arm] O2 Sat by Pulse Oximetry 97 99 Oxygen Delivery Method Room Air Aerosol Face Tent 08/13/23 14:51 08/13/23 14:51 08/13/23 15:11 Temperature Pulse Rate 74 66 Pulse Rate [Left Brachial] Respiratory Rate 18 18 18 Blood Pressure 191/100 213/103 Blood Pressure [Left Arm] O2 Sat by Pulse Oximetry 99 98 Oxygen Delivery Method Aerosol Face Tent Room Air 08/13/23 15:16 08/13/23 14:56 08/13/23 15:01 Temperature Pulse Rate 68 75 63 Pulse Rate [Left Brachial] Respiratory Rate 17 18 19 Blood Pressure 213/103 215/112 206/108 Blood Pressure [Left Arm] O2 Sat by Pulse Oximetry 99 97 98 Oxygen Delivery Method Room Air Room Air Room Air 08/13/23 15:06 08/13/23 08:30 08/13/23 08:00 Temperature 98.4 F Pulse Rate 66 Pulse Rate [Left Brachial] 74 Respiratory Rate 18 20 Blood Pressure 205/110 Blood Pressure [Left Arm] 121/74 O2 Sat by Pulse Oximetry 98 92 L Oxygen Delivery Method Room Air Room Air Room Air 08/13/23 14:56 08/13/23 15:01 08/13/23 15:11 Temperature Pulse Rate Pulse Rate [Left Brachial] Respiratory Rate 19 19 18 Blood Pressure Blood Pressure [Left Arm] O2 Sat by Pulse Oximetry Oxygen Delivery Method 08/13/23 15:21 08/13/23 15:26 08/13/23 12:00 Temperature 98.4 F Pulse Rate 71 72 Pulse Rate [Left Brachial] 58 L Respiratory Rate 17 18 20 Blood Pressure 196/104 192/101 Blood Pressure [Left Arm] 122/66 O2 Sat by Pulse Oximetry 98 98 96 Oxygen Delivery Method Room Air Room Air Room Air 08/13/23 15:34 08/13/23 15:40 08/13/23 15:55 Temperature 98.1 F 98.3 F Pulse Rate 76 Pulse Rate [Left Brachial] 71 98 H Respiratory Rate 18 20 20 Blood Pressure 188/96 Blood Pressure [Left Arm] 194/104 151/107 O2 Sat by Pulse Oximetry 97 99 98 Oxygen Delivery Method Room Air 08/13/23 16:10 08/13/23 16:25 08/13/23 16:40 Temperature 97.9 F 98.4 F 97.7 F Pulse Rate Pulse Rate [Left Brachial] 88 83 88 Respiratory Rate 20 18 18 Blood Pressure Blood Pressure [Left Arm] 165/107 171/96 174/98 O2 Sat by Pulse Oximetry 96 94 L 96 Oxygen Delivery Method 08/13/23 17:40 08/13/23 18:38 08/13/23 19:08 Temperature 98.1 F Pulse Rate Pulse Rate [Left Brachial] 88 Respiratory Rate 18 18 18 Blood Pressure Blood Pressure [Left Arm] 169/88 O2 Sat by Pulse Oximetry 98 Oxygen Delivery Method 08/13/23 18:40 08/13/23 19:40 08/13/23 20:00 Temperature 98.4 F 98.7 F 97.9 F Pulse Rate Pulse Rate [Left Brachial] 105 H 100 H 100 H Respiratory Rate 20 20 20 Blood Pressure Blood Pressure [Left Arm] 129/81 123/79 133/79 O2 Sat by Pulse Oximetry 96 95 95 Oxygen Delivery Method Room Air Room Air Room Air 08/13/23 19:00 08/13/23 22:39 08/13/23 23:09 Temperature Pulse Rate Pulse Rate [Left Brachial] Respiratory Rate 17 16 Blood Pressure Blood Pressure [Left Arm] O2 Sat by Pulse Oximetry Oxygen Delivery Method Room Air 08/14/23 00:00 08/14/23 04:00 08/14/23 02:40 Temperature 98.1 F 98.3 F Pulse Rate Pulse Rate [Left Brachial] 97 H 81 Respiratory Rate 20 20 21 Blood Pressure Blood Pressure [Left Arm] 145/76 168/80 O2 Sat by Pulse Oximetry 97 99 Oxygen Delivery Method Room Air Room Air 08/14/23 03:10 08/14/23 06:40 08/14/23 08:00 Temperature 98.0 F Pulse Rate Pulse Rate [Left Brachial] 85 Respiratory Rate 17 22 20 Blood Pressure Blood Pressure [Left Arm] 129/74 O2 Sat by Pulse Oximetry 98 Oxygen Delivery Method Room Air 08/14/23 07:00 08/14/23 07:10 08/14/23 10:31 Temperature Pulse Rate Pulse Rate [Left Brachial] Respiratory Rate 22 22 Blood Pressure Blood Pressure [Left Arm] O2 Sat by Pulse Oximetry Oxygen Delivery Method Room Air 08/14/23 12:00 08/14/23 11:01 08/14/23 14:32 Temperature 99.2 F Pulse Rate Pulse Rate [Left Brachial] 82 Respiratory Rate 20 20 20 Blood Pressure Blood Pressure [Left Arm] 137/77 O2 Sat by Pulse Oximetry 96 Oxygen Delivery Method Room Air 08/14/23 16:00 08/14/23 15:02 08/14/23 18:24 Temperature 98.6 F Pulse Rate Pulse Rate [Left Brachial] 69 Respiratory Rate 20 20 20 Blood Pressure Blood Pressure [Left Arm] 132/80 O2 Sat by Pulse Oximetry 98 Oxygen Delivery Method Room Air 08/14/23 20:00 08/14/23 19:00 08/14/23 22:34 Temperature 98.5 F Pulse Rate Pulse Rate [Left Brachial] 76 Respiratory Rate 20 18 Blood Pressure Blood Pressure [Left Arm] 127/73 O2 Sat by Pulse Oximetry 95 Oxygen Delivery Method Room Air Room Air 08/14/23 23:04 08/15/23 00:00 08/15/23 02:55 Temperature 98.6 F Pulse Rate Pulse Rate [Left Brachial] 69 Respiratory Rate 21 20 22 Blood Pressure Blood Pressure [Left Arm] 131/77 O2 Sat by Pulse Oximetry 96 Oxygen Delivery Method Room Air 08/15/23 03:25 08/15/23 04:00 08/15/23 08:00 Temperature 98.1 F 98.9 F Pulse Rate Pulse Rate [Left Brachial] 73 80 Respiratory Rate 18 20 20 Blood Pressure Blood Pressure [Left Arm] 113/67 138/80 O2 Sat by Pulse Oximetry 95 98 Oxygen Delivery Method Room Air Room Air 08/15/23 09:33 08/15/23 07:00 08/15/23 10:03 Temperature Pulse Rate Pulse Rate [Left Brachial] Respiratory Rate 20 18 Blood Pressure Blood Pressure [Left Arm] O2 Sat by Pulse Oximetry Oxygen Delivery Method Room Air 08/15/23 12:00 Temperature 98.6 F Pulse Rate Pulse Rate [Left Brachial] 72 Respiratory Rate 20 Blood Pressure Blood Pressure [Left Arm] 125/74 O2 Sat by Pulse Oximetry 96 Oxygen Delivery Method Room Air Labs: Laboratory Last Values WBC 6.2 X10^3/uL (3.6-10.0) 08/13/23 04:48 RBC 5.17 X10^6/uL (4.7-6.0) 08/13/23 04:48 Hgb 15.6 g/dL (13.5-18.0) 08/13/23 04:48 Hct 46.6 % (42.0-54.0) 08/13/23 04:48 MCV 90.1 fL (80.0-100.0) 08/13/23 04:48 MCH 30.1 pg (27.0-34.0) 08/13/23 04:48 MCHC 33.4 g/dL (33.0-35.0) 08/13/23 04:48 RDW 14.1 % (11.6-16.5) 08/13/23 04:48 Plt Count 236 X10^3/uL (150.0-450.0) 08/13/23 04:48 Plt Count Comment Adequate (ADEQUATE) 08/11/23 10:57 MPV 8.2 fL (7.4-11.0) 08/13/23 04:48 Neut % (Auto) 66.8 % (42.0-75.0) 08/13/23 04:48 Lymph % (Auto) 18.5 % (21.0-51.0) L 08/13/23 04:48 [place] % (Auto) 13.0 % (0.0-13.0) 08/13/23 04:48 Eos % (Auto) 0.6 % (0.9-2.9) L 08/13/23 04:48 Baso % (Auto) 1.1 % (0.2-1.0) H 08/13/23 04:48 Neut # (Auto) 4.1 x10^3/uL (2.2-4.8) 08/13/23 04:48 Lymph # (Auto) 1.1 X10^3/uL (1.3-2.9) L 08/13/23 04:48 [place] # (Auto) 0.8 x10^3/uL (0.3-0.8) 08/13/23 04:48 Eos # (Auto) 0.0 x10^3/uL (0.0-0.2) 08/13/23 04:48 Baso # (Auto) 0.1 X10^3/uL (0.0-0.1) 08/13/23 04:48 Absolute Nucleated RBC 0.1 /100WBC 08/13/23 04:48 Total Counted 100 08/11/23 10:57 Neutrophils % (Manual) 95 % (39-76) H 08/11/23 10:57 Lymphocytes % (Manual) 4 % (13-43) L 08/11/23 10:57 Monocytes % (Manual) 1 % (4-9) L 08/11/23 10:57 Plt Morphology Comment Normal (NORMAL) 08/11/23 10:57 RBC Morphology Normal (NORMAL) 08/11/23 10:57 Sodium 139 mmol/L (136-145) 08/15/23 05:54 Corrected Sodium TNP 08/15/23 05:54 Potassium 4.1 mmol/L (3.5-5.1) 08/15/23 05:54 Chloride 104 mmol/L (98-107) 08/15/23 05:54 Carbon Dioxide 29.8 mmol/L (21-32) 08/15/23 05:54 BUN 10 mg/dL (7-18) 08/15/23 05:54 Creatinine 0.86 mg/dL (0.70-1.30) 08/15/23 05:54 Est GFR (MDRD) Af Amer > 60 (>60) 08/15/23 05:54 Est GFR (MDRD) Non-Af > 60 (>60) 08/15/23 05:54 Glucose 91 mg/dL (65-99) 08/15/23 05:54 Calcium 8.6 mg/dL (8.5-10.1) 08/15/23 05:54 Corrected Calcium 9.5 mg/dL (8.5-10.1) 08/15/23 05:54 Magnesium 2.0 mg/dL (2.0-2.9) 08/13/23 04:48 Total Bilirubin 0.80 mg/dL (0.2-1.0) 08/15/23 05:54 AST 24 Units/L (15-37) 08/15/23 05:54 ALT 64 Units/L (12-78) 08/15/23 05:54 Alkaline Phosphatase 66 Units/L (46-116) 08/15/23 05:54 Total Protein 6.1 g/dL (6.4-8.2) L 08/15/23 05:54 Albumin 2.9 g/dL (3.4-5.0) L 08/15/23 05:54 Globulin 3.2 g/dL (2.5-4.5) 08/15/23 05:54 Albumin/Globulin Ratio 0.9 Ratio (1.1-2.1) L 08/15/23 05:54 Amylase 77 Units/L (25-115) 08/11/23 10:57 Lipase 26 Units/L (16-77) 08/11/23 10:57 Specimen Type Random urine 08/11/23 15:40 Urine Color Yellow (YELLOW) 08/11/23 15:40 Urine Appearance Slightly hazy (CLEAR) 08/11/23 15:40 Urine pH 6.0 (5.0 - 8.0) 08/11/23 15:40 Ur Specific [place] 1.025 (1.000-1.030) 08/11/23 15:40 Urine Protein 2+ (NEGATIVE) 08/11/23 15:40 Urine Glucose (UA) Negative (NEGATIVE) 08/11/23 15:40 Urine Ketones 4+ (NEGATIVE) 08/11/23 15:40 Urine Blood Negative (NEGATIVE) 08/11/23 15:40 Urine Nitrite Negative (NEGATIVE) 08/11/23 15:40 Urine Bilirubin Negative (NEGATIVE) 08/11/23 15:40 Urine Urobilinogen 2+ (NORMAL) 08/11/23 15:40 Ur Leukocyte Esterase Negative (NEGATIVE) 08/11/23 15:40 Urine RBC None seen /HPF (0-3) 08/11/23 15:40 Urine WBC 0-2 /HPF (0-5) 08/11/23 15:40 Ur Squamous Epith Cells Rare /HPF (NEGATIVE) 08/11/23 15:40 Urine Bacteria Negative /HPF (NEGATIVE) 08/11/23 15:40 Ur Culture Indicated? No/not indicated 08/11/23 15:40 Reason For Visit: BILIARY DYSKINESIA, ABDOMINAL PAIN Discharge Date Discharge Date: 08/15/23 Discharge Diagnosis All Active Problems (Updated 08/11/23 @ 20:25 by Dexter Mesa) Dyslipidemia (Acute) Essential (primary) hypertension (Acute) RUQ abdominal pain (Acute) Biliary dyskinesia (Acute) Abdominal pain (Acute) Plan of Treatment: Continue with present treatment and follow up plan. Pt is to keep follow up appointment as instructed and take medications as ordered. Discharge Medications Discharge Medications: No Known Allergies Allergy (Verified 08/11/23 10:20) CONTINUE taking the following medications atorvastatin 20 mg tablet 20 mg PO HS 08/11/23 [History] ibuprofen 400 mg tablet 400 mg PO Q8H PRN 08/11/23 [History] lisinopril 5 mg tablet 5 mg PO DAILY 08/11/23 [History] pantoprazole 40 mg tablet,delayed release (Protonix) 40 mg PO DAILY 08/11/23 [History] Add Percocet 5 mg , 1 po q 6 hr PRN pain Discharge Disposition Assessment: see hospital course Discharge Plan Discharge Plan Hospital Course: This 43 year old male presented with multiple episodes of right upper quadrant pain with meals. CT scan showed no obvious gallstones. Patient was admitted and underwent a biliary HIDA scan showing a low ejection fraction of 33%. The patient was taken to the operating Suite on August 13 where he underwent uncomplicated laparoscopic cholecystectomy. He had complained of some abdominal pain in the right upper quadrant that has resolved. Post-procedure liver function tests are within normal limits. He will be discharged back to the long-term system. I will see him in follow up in two weeks. Patient Disposition: 01 HOME, SELF-CARE Condition: Stable Health Concerns: Post Hospitalization: new medications and changes needed to prevent readmission or further decline. Pt educated and given instructions on all concerns. Care Plan Goals: Problem: Pain/Alteration in Comfort Goal: Improve/ Resolve Pain; Achieve Pain Tolerance Instructions: Take pain medications as prescribed. Contact your primary care provider if your pain is unrelieved or worsens. Follow up with primary care provider as directed. Plan of Treatment: Continue with present treatment and follow up plan. Pt is to keep follow up appointment as instructed and take medications as ordered. Assessment: see hospital course Prescription drug monitoring program results: PDMP was not reviewed Prescriptions: New oxycodone-acetaminophen [Percocet] 5-325 mg tablet 1 tab PO Q6H MDD 4 PRNQty: 20 0RF Continued atorvastatin 20 mg Tablet 20 mg PO HS pantoprazole [Protonix] 40 mg Tablet,Delayed Release (Dr/Ec) 40 mg PO DAILY ibuprofen 400 mg Tablet 400 mg PO Q8H PRN lisinopril 5 mg Tablet 5 mg PO DAILY Orders to Discharge Patient Discharge Orders: Discharge (Routine); Ordered 08/15/23 Ordered By: Dexter Mesa Follow ups/Referrals Follow ups/Referrals: Dexter Mesa [STAFF PHYSICIAN] - 08/18/23 1:00 pm Instructions Instructions: Laparoscopic Cholecystectomy, Care After, Laparoscopic Cholecystectomy, Eating Plan for Dumping Syndrome, Gallbladder Eating Plan, Biliary Dyskinesia, Dumping Syndrome Stand Alone Forms: Post Hospital Follow Up Care
[2023-08-15 13:07] VITALS: RESP 18
== END 2023-08-15 13:50 | disposition home or self-care (01) ==
LOC: MED/SURG 10:10 → ER 10:10 → MED/SURG 14:07
PROVIDERS: ADMIT Surgery; ATTEND Surgery
DX: E78.5 Hyperlipidemia, unspecified; I10 Essential (primary) hypertension; R10.11 Right upper quadrant pain; R10.13 Epigastric pain; R73.09 Other abnormal glucose; K82.8 Other specified diseases of gallbladder